=== PATIENT | female | born 2000 | race Caucasian/White ===

== ENCOUNTER → 2019-02-15 | Emergency (ER) | payer OTHER ==
[~2019-02-15] VITALS: Ht 154.9 cm; Wt 84.4 kg
[~2019-02-15] MED LIST: ACET500C5 PO; CEPH-443 PO
[2019-02-15 09:40] VITALS: BP 132/76; PULSE 84; RESP 18; Ht 154.9 cm; Wt 84.4 kg
--- NOTE | 2019-02-15 12:39 | ERD ---
ER Documentation Chief Complaint Chief Complaint vaginal bleeding x this am 7 weeks HPI 18-year-old female patient with no significant past medical history is a reports that her last menstruation was on December 23, 2018. States that she had to change 1 pad, of vaginal bleeding however is not hemorrhaging. Denies any abdominal pain, chest pain, shortness of breath, nausea, vomiting, diarrhea, neck stiffness. Denies any dysuria, urgency, frequency. ROS All systems reviewed and are negative except as per history of present illness. Medications Home Meds Active Scripts Acetaminophen* (Tylophen*) 500 Mg Capsule, 1 CAP PO Q6H PRN for PAIN AND OR ELEVATED TEMP, #20 CAP Prov:RADHA TORRES PA-C 02/15/19 Cephalexin* (Keflex*) 500 Mg Capsule, 500 MG PO QID for 7 Days, CAP Prov:RADHA TORRES PA-C 02/15/19 PMhx/Soc Medical and Surgical Hx: pt denies Medical Hx, pt denies Surgical Hx Hx Alcohol Use: No Hx Substance Use: No Hx Tobacco Use: No FmHx Family History: No diabetes, No coronary disease Physical Exam Vitals Vital Signs Date Temp Pulse Resp B/P (MAP) Pulse Ox O2 O2 Flow FiO2 Time Delivery Rate 02/15/19 97.8 84 18 132/76 100 09:40 (94) Physical Exam Const: Wju-sue-minsopxpv, well-nourished. In no acute distress. Head: Atraumatic, normocephalic Eyes: Normal Conjunctiva without injection. No purulent discharge. ENT: Normal external ear, nose. Moist oropharynx without tonsillar exudates. Non-erythematous pharynx. Uvula midline. No drooling. No trismus. Neck: No cervical midline tenderness. Full range of motion. No meningismus. No cervical lymphadenopathy. No JVD. Resp: Clear to auscultation bilaterally. No wheezing, rhonchi, rales, or crackles. No accessory muscle use. No retractions. Cardio: Regular rate and rhythm. No murmurs, rubs or gallops. Abd: Soft, nontender, non distended. Normal bowel sounds. No palpable masses. No rebound tenderness. No guarding. Negative McBurney's point. Negative psoas sign. Negative obturator sign. Skin: No petechiae or rashes Back: No midline tenderness. No CVA tenderness. Ext: No cyanosis, or edema. Neur: Awake and alert. Normal gait. Normal coordination. Psych: Normal Mood and Affect Result Diagram: 02/15/19 1017 Results 24 hrs Laboratory Tests Test 02/15/19 10:17 White Blood Count 7.1 10^3/ul Red Blood Count 4.78 10^6/ul Hemoglobin 12.7 g/dl Hematocrit 38.7 % Mean Corpuscular Volume 81.0 fl Mean Corpuscular Hemoglobin 26.6 pg Mean Corpuscular Hemoglobin Concent 32.8 g/dl Red Cell Distribution Width 13.6 % Platelet Count 238 10^3/UL Mean Platelet Volume 11.8 fl Immature Granulocytes % 0.400 % Neutrophils % 67.0 % Lymphocytes % 24.1 % Monocytes % 6.2 % Eosinophils % 1.7 % Basophils % 0.6 % Nucleated Red Blood Cells % 0.0 /100WBC Immature Granulocytes # 0.030 10^3/ul Neutrophils # 4.8 10^3/ul Lymphocytes # 1.7 10^3/ul Monocytes # 0.4 10^3/ul Eosinophils # 0.1 10^3/ul Basophils # 0.0 10^3/ul Nucleated Red Blood Cells # 0.0 10^3/ul Urine Color YELLOW Urine Clarity CLOUDY Urine pH 7.0 Urine Specific [place] 1.024 Urine Ketones NEGATIVE mg/dL Urine Nitrite NEGATIVE mg/dL Urine Bilirubin NEGATIVE mg/dL Urine Urobilinogen NEGATIVE mg/dL Urine Leukocyte Esterase 1+ Shruthi/ul Urine Microscopic RBC 1 /HPF Urine Microscopic WBC 15 /HPF Urine Squamous Epithelial Cells FEW /HPF Urine Amorphous Crystals FEW /HPF Urine Bacteria FEW /HPF Urine Mucus FEW /HPF Urine Yeast (Budding) MANY /HPF Urine Hemoglobin 3+ mg/dL Urine Glucose NEGATIVE mg/dL Urine Total Protein NEGATIVE mg/dl Beta HCG, Quantitative 33436.0 mIU/ml Procedures/MDM 18-year-old female patient with no significant past medical history presents ED complaining of vaginal bleeding that occurred yesterday during her . Patient is afebrile and nontoxic-appearing. An ultrasound, beta-hCG, CBC, type and RH, UA was ordered to evaluate patient. CBC: No evidence of severe infection or anemia Urine: No elevation in nitrites, 1+ leukocyte esterase, hematuria. Rh: B positive No indication for Rhogam at this time. beta Hc IMPRESSION: 1. Single live intrauterine fetus which by ultrasound corresponds to a gestational age of 8 weeks 0 days plus or minus 4 days. The estimated date of delivery based on today's sonogram is 09/27/2019. 2. The heart rate is 174 bpm. 3. Subchorionic hemorrhage seen to the left of the gestational sac measuring 2.0 x 1.9 x 0.6 cm. 4. Neither ovary was identified and no adnexal mass or free fluid is evident. Patient will be treated for urinary tract infection based on the 1+ leukocyte esterase noted on her UA. Pelvic rest was recommended to the patient has a subchorionic hemorrhage noted. Observation of the subchorionic hemorrhage was recommended to the patient and to follow-up with [facility]. Return for any worsen ing vaginal bleeding. Patient's bleeding symptoms have stabilized while in the department. Low suspicion for symptomatic anemia, ectopic , sepsis, PID, appendicitis, ovarian torsion, tubo-ovarian abscess, surgical abdomen, or other emergent conditions. Patient was educated that there is a risk for threatened . Patient to follow up with [facility] in 2 days for further evaluation and treatment. Patient is to return sooner to the ED for any worsening symptoms. Patient's questions were answered. Patient understood and agreed with discharge plan. Departure Diagnosis: Primary Impression: Vaginal bleeding in patient at less than 20 weeks ges... Condition: Stable Patient Instructions: Urinary Tract Infections in Women, Bleeding During Early Referrals: COMM[facility]ITY CLIN[facility] YOU HAVE RECEIVED A MEDICAL SCREENING EXAM AND THE RESULTS INDICATE THAT YOU DO NOT HAVE A CONDITION THAT REQUIRES URGENT TREATMENT IN THE EMERGENCY DEPARTMENT. FURTHER EVALUATION AND TREATMENT OF YOUR CONDITION CAN WAIT UNTIL YOU ARE SEEN IN YOUR DOCTORS OFFICE WITHIN THE NEXT 1-2 DAYS. IT IS YOUR RESPONSIBILITY TO MAKE AN APPOINTMENT FOR FOLOW-UP CARE. IF YOU HAVE A PRIMARY DOCTOR --you should call your primary doctor and schedule an appointment IF YOU DO NOT HAVE A PRIMARY DOCTOR YOU CAN CALL OUR PHYSICIAN REFERRAL HOTLINE AT IF YOU CAN NOT AFFORD TO SEE A PHYSICIAN YOU CAN CHOSE FROM THE FOLLOWING [facility] [address] [facility]. [facility] [address] [facility] [address] [facility]. [facility] [address] [facility] [facility] [address] [facility]. [facility]. [address] [facility]. [facility] YOU HAVE RECEIVED A MEDICAL SCREENING EXAM AND THE RESULTS INDICATE THAT YOU DO NOT HAVE A CONDITION THAT REQUIRES URGENT TREATMENT IN THE EMERGENCY DEPARTMENT. FURTHER EVALUATION AND TREATMENT OF YOUR CONDITION CAN WAIT UNTIL YOU ARE SEEN IN YOUR DOCTORS OFFICE WITHIN THE NEXT 1-2 DAYS. IT IS YOUR RESPONSIBILITY TO MAKE AN APPOINTMENT FOR FOLOW-UP CARE. IF YOU HAVE A PRIMARY DOCTOR --you should call your primary doctor and schedule and appointment IF YOU DO NOT HAVE A PRIMARY DOCTOR YOU CAN CALL OUR PHYSICIAN REFERRAL HOTLINE AT . IF YOU CAN NOT AFFORD TO SEE A PHYSICIAN YOU CAN CHOSE FROM THE FOLLOWING [facility] INSTITUTIONS[facility] [address] [place] [address] [facility] [address] [place] [address] [facility] [address] [place] [address] [facility] URGENT CARE/SPECIALTIES Additional Instructions: Call your primary care doctor TOMORROW for an appointment during the next 2-3 days.See the doctor sooner or return here if your condition worsens before your appointment time. RADHA TORRES PA-C February 15, 2019 12:39
== END | disposition home or self-care (01) ==
LOC: FTE 09:28
DX: O20.9 Hemorrhage in early pregnancy, unspecified (principal); Z3A.08 8 weeks gestation of pregnancy
CPT/HCPCS: 36415; 76801; 81001; 84702; 85025; 86900; 86901; Z7502